=== PATIENT | male | born 1990 ===

== ENCOUNTER → 2018-08-01 22:54 | Outpatient (REF) | payer OTHER, SELFPAY ==
[2018-08-05 17:38] LABS: Estrogen 103.8 pg/mL (60-190)
[2018-08-08 13:38] LABS: Dehydroepiandrosterone (DHEA) 196
[2018-08-08 13:39] LABS: Sex Hormone Binding Globulin 18.8
== END ==
LOC: LAB 22:54
PROVIDERS: Visit Provider Family Medicine
DX: F64.0 Transsexualism (principal)
CPT/HCPCS: 36415; 82627; 82672; 84270; 84403